=== PATIENT | female | born 1950 | race Caucasian/White ===

== ENCOUNTER → 2017-02-08 | Outpatient (CLI) | payer MEDICARE, OTHER ==
[~2017-02-08] MED LIST: ASPIRIN LO-DOSE81 MG PO; BYSTOLIC5 MG PO; FLONASE 50 MCG/16 GM NOSE; GLUCOPHAGE XR500 M1 PO; LIVALO2 MG PO; MICARDIS40 MG PO; NIACIN500 M3 PO; NORVASC5 MG PO; OMEPRAZOLE40 MG PO; RANEXA ER500 MG PO; REMERON15 MG PO; TRICOR145 MG PO; TYLENOL325 MG PO
== END ==
LOC: GNUT 08:41
DX: E11.65 Type 2 diabetes mellitus with hyperglycemia (principal)

== ENCOUNTER → 2017-03-15 | Outpatient (CLI) | payer MEDICARE, OTHER | LOC: GNUT 09:32 | DX: E11.65 Type 2 diabetes mellitus with hyperglycemia (principal) | CPT/HCPCS: G0270 ==